=== PATIENT | male | born 2000 | race Caucasian/White ===

== ENCOUNTER 2019-04-26 08:01 | Emergency (ER) | payer SELFPAY ==
[~2019-04-26] VITALS: Ht 182.9 cm; Wt 97.5 kg
[2019-04-26] MEDS ORDERED: KETOROLAC 30 MG/ML VIAL IM ONE (08:15)
--- NOTE | 2019-04-26 08:17 | ED Upper Extremity ---
General Stated Complaint: L WRIST INJ Source: patient Exam Limitations: no limitations History of Present Illness Date Seen by Provider: Apr 26, 2019 Time Seen by Provider: 08:02 Initial Comments Patient presents to ER by private conveyance with chief complaint he is on the [place] [employer] and 2 days ago he fell down on his left wrist which are ready for the past year and a half has had some chronic pain from a previous injury. He had a reinjury had some tingling in his third fourth and fifth digits on the dorsal side and a lot of swelling. It was hurting him a little bit 3 days ago so he put a wrist splint on it but that was feeling worse even though he had a lives. He took the splint off and it got better and then he heard 2 days ago. He is not using Tylenol ibuprofen or been on any recent steroids. He does not take any medications nor have any significant medical history. The past he had it x-rayed and was told that there was a bone in his wrist that was broken and would need a surgeon to fix it but he didn't want to pay the money to have it done. He is from [place], [place] and would like to see the surgeon now and just wants something to help with the pain today. Allergies and Home Medications Allergies Coded Allergies: No Known Drug Allergies (Unverified , 04/26/19) Patient Home Medication List Home Medication List Reviewed: Yes Review of Systems Constitutional: No chills, No diaphoresis EENTM: No ear discharge, No ear pain Respiratory: No cough, No short of breath Cardiovascular: No chest pain, No edema Gastrointestinal: No abdominal pain, No nausea Past Cvgdvhq-Tawokb-Kgekup Hx Patient Social History Recent Foreign Travel: No Contact w/Someone Who Travel: No Physical Exam Vital Signs Vital Signs - First Documented 04/26/19 08:06 Temp 97.6 Pulse 74 Resp 18 B/P (MAP) 129/83 Capillary Refill : Height, Weight, BMI Height: '" Weight: lbs. oz. kg; BMI Method: General Appearance: WD/WN, no apparent distress HEENT: normal ENT inspection, pharynx normal Neck: non-tender, full range of motion, normal inspection Cardiovascular: normal peripheral pulses, regular rate, rhythm Respiratory: no respiratory distress, no accessory muscle use Shoulder: normal inspection, non-tender, no evidence of injury Elbow/Forearm: normal inspection, non-tender (negative for Tinel's tap over the ulnar nerve sheet), no evidence of injury, normal ROM, Left Wrist: Yes soft tissue tenderness (moderate soft tissue swelling and tenderness in the left wrist with pain over the anatomic snuffbox and decreased range of motion secondary to pain. No erythema.) Hand: normal inspection, non-tender, normal ROM, Left Neurologic/Tendon: normal sensation, normal motor functions Neurologic/Psychiatric: no motor/sensory deficits, alert, oriented x 3 Skin: normal color, warm/dry Progress/Results/Core Measures Results/Orders My Orders Orders - ARABELLA BEASLEY Wrist, Left, 3 Views Or More (04/26/19 08:12) Ketorolac Injection (Toradol Injection) (04/26/19 08:15) Medications Given in ED Current Medications Medications Dose Ordered Sig/Sahil Route Start Time Stop Time Status Last Admin Dose Admin Ketorolac Tromethamine 60 mg ONCE ONCE IM 04/26/19 08:15 04/26/19 08:16 DC 04/26/19 08:19 60 MG Vital Signs/I&O 04/26/19 08:06 Temp 97.6 Pulse 74 Resp 18 B/P (MAP) 129/83 Progress Progress Note : Time: 08:17 Progress Note Plain film, Toradol. Diagnostic Imaging Diagonstic Imaging: Xray Plain Films/CT/US/NM/MRI: hand (left wrist) Comments NAME: KUNAL LAW MED REC#: [id number] PT STATUS: REG ER : 2000 PHYSICIAN: ARABELLA BEASLEY MD ADMIT DATE: 04/26/19/ER Draft Date of Exam:04/26/19 WRIST, LEFT, 3 VIEWS OR MORE INDICATION: Thrown off of a horse, with left wrist injury and pain. Time of exam: 8:36 AM 3 views of the left wrist demonstrate a fracture through the waist of the scaphoid. No significant displacement is seen. Remaining carpal bones appear to be intact. Distal radius and ulna are intact the metacarpals are unremarkable. IMPRESSION: Acute fracture through the waist of the scaphoid, nondisplaced. Dictated on workstation # [id number] Dict: 04/26/19 0840 Trans: 04/26/19 0844 [facility] [id number] Interpreted by: MAYA KIRBY MD Electronically signed by: Reviewed: Reviewed by Me Consults : Consulting Physician: LITZY WILDER DO Consults Notes Thumb spica splint and follow up Friday. Departure Impression Primary Impression: Closed nondisplaced fracture of scaphoid of left wrist Qualified Codes: S62.025A - Nondisplaced fracture of middle third of navicular [scaphoid] bone of left wrist, initial encounter for closed fracture Disposition: HOME, SELF-CARE Condition: Stable Departure-Patient Inst. Decision time for Depature: 09:00 Referrals: LITZY WILDER DO Patient Instructions: Wrist Fracture (DC) Add. Discharge Instructions: You have a fracture of your scaphoid which can be very problematic to heal. Please wear the splint until released by a surgeon. Call Dr. Wilder, or the orthopedic surgeon and obtain follow-up in the clinic on Friday. Tylenol 1000 mg every 8 hours in addition to ibuprofen 800 mg every 8 hours as necessary for pain. Ice for 20 minutes every 2-4 hours for the first 2-3 days. Elevate the hand above the level of your heart for swelling or pain. Rest your hand and do not use it as this can worsen the fracture. Scripts Hydrocodone Bit/Acetaminophen (Hydrocodone/Acetaminophen 5/325mg Tablet) 1 Tab Tab 1 EACH PO Q4-6HR PRN for PAIN-MODERATE MDD 10 for 3 Days, #14 TAB 0 Refills Prov: ARABELLA BEASLEY 04/26/19 Work/School Note: Work Release Form Date Seen in the Emergency Department: Apr 26, 2019 Return to Work: Apr 29, 2019 Restrictions: Need Release from Doctor Other Restrictions Listed Below: No use of the left wrist until cleared by surgery. ARABELLA BEASLEY Apr 26, 2019 08:17
--- NOTE | 2019-04-26 08:44 | Diagnostic Imaging Report ---
INDICATION: Thrown off of a horse, with left wrist injury and pain. Time of exam: 8:36 AM 3 views of the left wrist demonstrate a fracture through the waist of the scaphoid. No significant displacement is seen. Remaining carpal bones appear to be intact. Distal radius and ulna are intact the metacarpals are unremarkable. IMPRESSION: Acute fracture through the waist of the scaphoid, nondisplaced. Dictated by: Dictated on workstation # [id number]
[2019-04-26] MEDS ORDERED: ACHD5005 PO (09:08)
== END 2019-04-26 09:20 | disposition home or self-care (01) ==
LOC: ER 08:03
DX: S62.025A Nondisplaced fracture of middle third of navicular [scaphoid] bone of left wrist, initial encounter for closed fracture (principal); V80.010A Animal-rider injured by fall from or being thrown from horse in noncollision accident, initial encounter
CPT/HCPCS: 73110